=== PATIENT | female | born 1950 | race Caucasian/White ===

== ENCOUNTER → 2016-09-14 | Outpatient (CLI) | payer MEDICARE ==
[~2016-09-14] MED LIST: AMLODIPINE BESYL5 MG PO; ASPIRIN EC81 M1 PO; BENAZEPRIL HCL10 MG PO; CALTRATE+D3 PL1 EACH PO; METFORMIN HCL500 M2 PO; MULTI VITAMIN1 EACH PO; PERCOCET5/325 PO; PROPRANOLOL HCL80 MG PO; ROSUVASTATIN CA20 MG PO; SYNTHROID0.05 MG PO; VITAMIN D35000 UNIT PO; XARELTO10 MG PO
--- NOTE | ~2016-09-14 | EKG ---
PATIENT: MIGUEL GOMEZ UNIT #: [id number] Ventricular Rate: 56 BPM Atrial Rate: 56 BPM P-R Interval: 164 ms QRS Duration: 86 ms Q-T Interval: 440 ms QTC Calculation(Bezet): 424 ms P [place]: 20 degrees Calculated R [place]: -8 degrees Calculated T [place]: 32 degrees Diagnosis Line: Sinus bradycardia Diagnosis Line: Voltage criteria for left ventricular hypertrophy Diagnosis Line: Abnormal ECG Diagnosis Line: No previous ECGs available Diagnosis Line: Confirmed by NOEMÍ GARZA MD ([id number]) on Diagnosis Line: 09/15/2016 11:23:30 AM INTERPRETING MD: GREG CONNORS
[2016-09-14 12:30] LABS: BLOOD UREA NITROGEN 13 mg/dL (9-23); BUN/CREATININE RATIO 18.57; CALCIUM SERUM 9.2 mg/dL (8.4-10.2); CARBON DIOXIDE 27 mmol/L (22-31); CHLORIDE 106 mmol/L (100-111); CREATININE SERUM 0.7 mg/dL (0.6-1.4); GLOM FILT RATE Estimated ABOVE60 mL/min (>60); GLUCOSE FASTING 108 mg/dL (70-110); POTASSIUM 4.3 mmol/L (3.5-5.1); SODIUM 142 mmol/L (135-145)
== END | disposition home or self-care (01) ==
LOC: CAMB 10:08
PROVIDERS: Orthopaedic Surgery
DX: Z01.818 Encounter for other preprocedural examination (principal); M19.071 Primary osteoarthritis, right ankle and foot; R00.1 Bradycardia, unspecified; R94.31 Abnormal electrocardiogram [ECG] [EKG]
CPT/HCPCS: 36415; 80048; 87070; 93005

== ENCOUNTER 2016-09-28 12:49 | Inpatient (IN) | payer MEDICARE ==
--- NOTE | ~2016-09-28 | DS ---
Unit #: [id number] #: [id number] Patient: IMGUEL GOMEZ [id number] [address] [address] [id number] I MR#: [id number] NAME: MIGUEL GOMEZ ROOM: 45 Age: 66 Sex: F Admission Date: 09/28/2016 : 1950 Discharge Date: 09/30/2016 Attending Physician: Haseeb Centeno M.D. Primary Care Physician: Monserrat Belcher A.P.R.N. DISCHARGE SUMMARY DATE OF PROCEDURE 09/28/2016. PRIMARY PREADMISSION HOSPITAL DIAGNOSIS/PREOPERATIVE DIAGNOSIS Right ankle degenerative joint disease. POSTOPERATIVE DIAGNOSIS/DISCHARGE DIAGNOSIS Right ankle degenerative arthritis. PROCEDURES PERFORMED On 09/28/2016, there was a right ankle fusion. HOSPITAL COURSE The patient is a 66-year-old female, who sustained a right distal tibial open fracture in 2008, treated initially with an external fixator and eventual cylindrical metal cage with intramedullary nailing. The nail broken and was subsequently removed. All the procedures done previously where done at [facility]. The patient now has end-stage ankle joint arthritis and the cage has well grown into the tibia both proximally and distally which was confirmed by CT scan. The patient was now amenable to an ankle joint fusion. The patient was admitted to the hospital on 09/28/2016. The patient subsequently underwent a right ankle joint effusion. The patient tolerated the procedure and anesthesia well. The patient was then transferred to the orthopedic haney, where they were monitored for postoperative complications and pain control. On postoperative day 1, the patient was afebrile and vital signs stable. Labs demonstrated no abnormalities. The patient's pain was controlled. They worked with physical therapy successfully. On postoperative day 2, the patient was afebrile and vital signs stable. Labs were all within normal limits. The cast was changed. The dressings were removed. The incisions were all clean, dry, and intact with no evidence of any infection. New dressings were placed onto the patient's operative limb. The patient was subsequently discharged from the hospital on 09/30/2016 in satisfactory health with no apparent complications noted. DISCHARGE CONDITION Stable. DISPOSITION Home. Unit #: [id number] #: [id number] Patient: MIGUEL GOMEZ DISCHARGE MEDICATIONS Percocet 5/325 take 1 to 2 tablets every 6 hours as needed for pain. Xarelto 10 mg take one tablet by mouth daily for DVT prophylaxis. DIET Resume and advance regular diet as tolerated. FOLLOWUP Follow up with Dr. Centeno in 10 days for postoperative visit. SPECIAL INSTRUCTIONS The patient was instructed to keep the dressings clean, dry, and intact. To ice and elevate as needed for pain and swelling. If any concerning signs or symptoms such as fevers, chills, nausea, vomiting, shortness of breath. Chest pain, calf cramping arise, please call the office immediately or go to the emergency room. Dictated by... Segundo Mckeon M.D. for Haseeb Centeno M.D. CRISTOBAL/quang TD: 09/30/2016 08:52 JOB #: [id number] DISCHARGE SUMMARY Page 1 of 1 X X DISCHARGE SUMMARY
--- NOTE | ~2016-09-28 | HP ---
Unit #: [id number] #: [id number] Patient: MIGUEL GOMEZ [id number] [address] [place], [place] [address] [id number] MR#: [id number] NAME: MIGUEL GOMEZ ROOM: 45 Age: Sex: F Admission Date: 09/28/2016 : 1950 Attending Physician: Haseeb Centeno M.D. Primary Care Physician: Monserrat Belcher A.P.R.N. HISTORY AND PHYSICAL CHIEF COMPLAINT Right ankle degenerative arthritis with pain. HISTORY OF PRESENT ILLNESS The patient is a 66-year-old female who sustained a right distal tibia open fracture in 2008. She underwent right distal tibial external fixation followed by intramedullary nailing through a 9 cm long, cylindrical, metal cage. The patient had significant loss in this area and the cage was placed and a nail was placed through the cage itself. This was performed at [facility]. The patient did relatively well August 2015 when she sustained a breakage of the intramedullary nail at the level of the ankle joint. The ankle joint was not fused with placement of the nail. The nail was subsequently removed with the exception of leaving the cage in place. The patient was then placed in a double upright brace in October 2015 and has been using this ever since. She uses a cane to ambulate. The patient denies any history of infection in the right leg. She is a nonsmoker and does not have diabetes. She has pain primarily over the ankle joint and not over the cage. The patient had a CT scan of the left leg which demonstrated that the metal cage was incorporated into the distal tibial shaft, both distally and proximally. The cage is 9.6 cm long and 3 cm in diameter. The distal end of the cage is 18 mm above the level of the ankle joint. Her C-reactive protein is mildly elevated at 2.9. CT scan also documents an arthritic ankle joint. The bony defect left in the talus and calcaneus reveals a 10 degree anterior bow indicating the placement of a straight nail would most likely improve ankle dorsiflexion by 10 degrees. The previously placed bone tunnel in the talus and calcaneus is in the appropriate location and would most likely improve her ankle position out of varus. It is evident that the patient's pain is most likely coming from her arthritic ankle joint. Her subtalar joint appears fused. I would, therefore, recommend fusion of the ankle joint with a straight intramedullary nail. Will augment this fusion with platelet derived growth factor and lock the nail proximally and distally. PAST MEDICAL HISTORY Remarkable for: 1. Posttraumatic arthritis of both ankles. 2. The patient also had a concurrent left distal tibial pilon fracture with open reduction internal fixation but the patient has no complaints of left ankle pain at this time. 3. Hypertension. Unit #: [id number] #: [id number] Patient: MIGUEL GOMEZ 4. Hypercholesterolemia. HOME MEDICATIONS 1. Amlodipine. 2. Aspirin. 3. Caltrate. 4. Crestor. 5. Multivitamins. 6. Vitamin D. ALLERGIES None listed. SOCIAL HISTORY The patient is a nonsmoker, nondrinker. She is . FAMILY HISTORY Unremarkable. REVIEW OF SYSTEMS Unremarkable. The patient denies fevers or chills. PHYSICAL EXAMINATION GENERAL: Height 5 feet tall, weight 215 pounds, BMI 42. In general, this is an obese female in no acute distress. PHARYNX: Clear. NECK: Supple without masses. HEART: Regular sinus rhythm without murmurs or gallops. LUNGS: Clear. ABDOMEN: Soft and nontender without masses or organomegaly. Evaluation of the right leg demonstrates a well-healed 16 cm anteromedial longitudinal incision over the distal tibia and ankle joint. There is a small lateral incision over the dorsolateral mid foot. Dorsalis pedis is 1+/2. Posterior tibial pulse is not palpated. Sensation is intact. Motor exam is intact. There is very limited motion of the ankle joint and there is tenderness to palpation over both the anteromedial and anterolateral tibiotalar joint. A 10 degree equinus contractor is present. There is no motion of the subtalar joint. There is very limited motion of the ankle joint. The sinus tarsi is also tender. The patient has no tenderness or (1) motion over the distal tibial shaft in the region of the metal cage. The patient had lateral tibial x-rays. There is a 1 cm right leg length discrepancy compared to the left. The subtalar joint is fused and there is posttraumatic arthritis of the ankle joint. A 9.6 cm long x 3 cm diameter metal cage is present in the distal tibia which appears to be incorporated into the tibial shaft proximally and distally which is confirmed by CT scan. ADMITTING DIAGNOSES 1. No evidence of right ankle infection. 2. Posttraumatic right ankle arthritis. 3. Right subtalar fusion. 4. Metal distal tibial cage incorporated proximally and distally. PLAN It appears as though the patient's pain is most likely coming from her Unit #: [id number] #: [id number] Patient: MIGUEL GOMEZ arthritic ankle. I would, therefore, recommend right ankle fusion using an intramedullary nail as a straight nail will be placed through the cage and should correct the 10 degree equinus contracture. Augment platelet derived growth factor will be utilized. This procedure was described along with risks of bleeding, infection, nerve damage, need for further surgery in the future, prolonged recovery time, deep venous thrombosis, pulmonary embolism, anesthetic complications, nonunion, malunion, risk of amputation. The patient understands the above risks and agrees to proceed. Dictated by Haseeb Centeno M.D. DAE/swapna TD: 09/27/2016 09:00 JOB #: [id number] HISTORY AND PHYSICAL Page 1 of 1 X Patti Centeno MD X HISTORY AND PHYSICAL
--- NOTE | ~2016-09-28 | BMI ---
[facility] Nutrition Therapy DATE: 09/29/16 Patient: MIGUEL GOMEZ Physician: CATARINO Address: [address] Room/Bed: [address] [place] [address], Zip: [place] [address] Admit Date: 09/28/16 Date of : [birth year] Height: 5 0 Weight: 222 101 HIGH BMI NOTE: DX: 66 yo female admitted for R ankle DJD ANTHROPOMETRICS: Ht: 5'0" Wt: 100.9 kg (222#) BMI: 43.4 DIET: Consistent carb INTERVENTION: Consistent carb RECOMMENDATIONS: 1. Continue consistent carb diet to promote gradual weight loss towards healthy BMI. RD will f/u per protocol. Respectfully, Sarina Betancourt, Ed Teacher Tong Siddiqui MS, RD, LD [employer] [facility] cc: client file
--- NOTE | ~2016-09-28 | OR ---
Unit #: [id number] #: [id number] Patient: MIGUEL GOMEZ [id number] [address] [place], [place] [address] [id number] MR#: [id number] NAME: MIGUEL GOMEZ ROOM: 452 Date of Procedure: 09/28/2016 Admission Date: 09/28/2016 Surgeon: Haseeb Centeno M.D. : 1950 Attending Physician: Haseeb Centeno M.D. Primary Care Physician: Monserrat Belcher A.P.R.N. OPERATIVE REPORT PREOPERATIVE DIAGNOSIS Right ankle degenerative arthritis. POSTOPERATIVE DIAGNOSIS Right ankle degenerative arthritis. PROCEDURE PERFORMED Right ankle fusion (97152). ASSISTANTS Celestino and Mike. ANESTHESIA General and popliteal saphenous block. INDICATIONS FOR SURGERY The patient is a 66-year-old female, who sustained a right distal tibial open fracture in 2008, which was treated with external fixation and eventual cylindrical metal cage treatment with intramedullary nailing. The nail broken and was subsequently removed. All procedures were done previously at the [facility]. The patient now has end-stage ankle arthritis and the cage is well grown into the tibia proximally and distally confirmed by CT scan. The patient is therefore to undergo ankle fusion using an intramedullary nail through the circular metal cage. DESCRIPTION OF PROCEDURE The patient was taken to the operating room and placed in supine position. General anesthetic was induced. A popliteal saphenous block was performed to the right lower extremity in the anesthesia holding area. The right leg was identified as the correct operative extremity. The right leg was then prepped and draped in usual sterile fashion. The IV antibiotic protocol was followed. The right leg was exsanguinated and the thigh tourniquet inflated to 300 mmHg. The previous anteromedial longitudinal scar was used for the incision. An 8 cm anteromedial longitudinal incision was then made over the ankle joint. Subcutaneous tissue was divided. The ankle joint was exposed with subperiosteal dissection. The power osteotome, curved curettes, and rongeurs were utilized to remove the articular cartilage from both sides of the ankle joint. A 2 cm incision was made in the plantar anterior third of the fat pad of the heel. The subcutaneous tissue was divided and a guide pin was drilled Unit #: [id number] #: [id number] Patient: MIGUEL GOMEZ through the center of the heel, through the center of the talus, and into the center of the intramedullary canal with care taken to ensure that it was through the center of the metal cage. The one-step reamer was then used. The [employer] VALOR intramedullary nail system was utilized. Serial reamings with a flexible reamer were then made beginning at an 8.5 mm diameter and ending at a 11.5 mm diameter and 0.5 mm diameter increments. A 25 cm long, 10 mm diameter VALOR intramedullary nail was then impacted into place. It was locked proximally with two locking screws placed from medial to lateral through the bone and through the cage. It was then locked distally with a screw placed from lateral to medial through the calcaneus. The compression device was then utilized. A second calcaneal screw was then placed from posterior to anterior. The outrigger drill guide was then used to place a drill hole through the calcaneus and into the talar neck. Unfortunately, we could not advance the screw through the nail, therefore this screw was not placed. The tourniquet was released with a total tourniquet time of 65 minutes. It should be noted that prior to final placement of the nail, 3 mL of augment platelet derived growth factor were placed in the tibiotalar joint with care taken to ensure even spreading of the calcium phosphate granules. The nail was then placed and compressed after placement of the augment platelet derived growth factor. Final completion of all internal fixation, intraoperative C-arm fluoroscopy documented satisfactory nail position and joint position. Care was taken to fuse the ankle in neutral position and neutral hindfoot position. The second metatarsal was well aligned with the tibial shaft. Tourniquet was released with a total tourniquet time of 65 minutes. Deep tissues were closed with 2-0 Vicryl. Subcutaneous tissue was closed with 3-0 Vicryl. Skin was closed with 3-0 nylon horizontal mattress sutures. Xeroform gauze, dressing, sponges, Webril, and a posterior fiberglass splint were applied. The patient was then transported to the recovery room in stable condition. ESTIMATED BLOOD LOSS Minimal. COMPLICATIONS None. SPECIMENS None. TOURNIQUET TIME 65 minutes. Dictated by... Micaela Renteria/quang TD: 09/29/2016 06:27 JOB #: [id number] Unit #: [id number] #: [id number] Patient: MIGUEL GOMEZ OPERATIVE REPORT Page 1 of 1 X Patti Centeno MD X PROCEDURE OPERATIVE NOTE
[~2016-09-28 12:49] MED LIST changes: -PERCOCET5/325 PO; -XARELTO10 MG PO
[2016-09-29 03:23] LABS: HEMATOCRIT 38.2 % (35.0-45.0); HEMOGLOBIN 12.3 gm/dL (12.0-16.0)
[2016-09-29 03:47] LABS: BUN/CREATININE RATIO 22.85; CALCIUM SERUM 8.4 mg/dL (8.4-10.2); CREATININE SERUM 0.7 mg/dL (0.6-1.4); GLOM FILT RATE Estimated 90.9 mL/min (>60)
[2016-09-30 03:43] LABS: HEMATOCRIT 31.6 % (35.0-45.0)
[2016-09-30 04:04] LABS: HEMOGLOBIN 10.3 gm/dL (12.0-16.0)
[2016-09-30 04:13] LABS: BUN/CREATININE RATIO 31.66; CALCIUM SERUM 8.8 mg/dL (8.4-10.2); CREATININE SERUM 0.6 mg/dL (0.6-1.4); GLOM FILT RATE Estimated 95.7 mL/min (>60); POTASSIUM 4.3 mmol/L (3.5-5.1)
[2016-09-30] MEDS ORDERED: PERCOCET5/325 PO (11:48)
[2016-09-30] MEDS ORDERED: XARELTO10 MG PO (11:48)
== END 2016-09-30 12:14 | disposition home or self-care (01) | DRG 494 ==
LOC: CSUR 12:49 → CPACUOF 13:05 → C4B 22:49
PROVIDERS: Orthopaedic Surgery
PROC: 0SGF04Z Fusion of Right Ankle Joint with Internal Fixation Device, Open Approach (ICD-10-PCS; principal; 2016-09-28 15:30)
DX: M19.171 Post-traumatic osteoarthritis, right ankle and foot (principal); I10 Essential (primary) hypertension; E11.9 Type 2 diabetes mellitus without complications; E03.9 Hypothyroidism, unspecified; E78.00 Pure hypercholesterolemia, unspecified; Z79.82 Long term (current) use of aspirin
CPT/HCPCS: 80048; 82947; 85014; 85018; 94762; 97161; 97530; C1713; J0690; J1100; J1170; J1885; J2250; J2270; J2405; J2765